=== PATIENT | female | born 1965 | race Caucasian/White ===

== ENCOUNTER 2018-03-08 07:10 | Day surgery (SDC) | payer OTHER ==
[~2018-03-08] VITALS: Ht 162.6 cm; Wt 67.1 kg
--- NOTE | 2018-03-08 06:41 | Anethesia Preoperative Eval ---
Anesthesia Pre-op PMH/ROS General Date of Evaluation: Mar 08, 2018 Time of Evaluation: 06:40 Anesthesiologist: liam ASA Score: ASA 2 Mallampati Score Class I : Soft palate, uvula, fauces, pillars visible Class II: Soft palate, uvula, fauces visible Class III: Soft palate, base of uvula visible Class IV: Only hard plate visible Mallampati Classification: Class II Surgeon: seble Diagnosis: gerd Surgical Procedure: egd Anesthesia History: none Social History: smoking - nonsmoker Family History: no anesthesia problems Allergies: Coded Allergies: No Known Allergies (Unverified , 06/21/15) Medications: see eMAR Patient NPO?: Yes Past Medical History Gastrointestinal/Genitourinary: Reports: other - fibroids Neurologic/Psychiatric: Reports: other - panic disorder HEENT: Reports: other - decreased visual acuity PSxH Narrative: cholecystectomy, abdominal hysterectomy Anesthesia Pre-op Phys. Exam Physician Exam Constitutional: NAD Neurologic: CN 2-12 intact Cardiovascular: RRR Respiratory: CTA Airway Exam Mallampati Score: Class II MO: full Neck: flexible TMD: 2fb ROM: full Anesthesia Pre-op A/P Risk Assessment & Plan Assessment: asa2 Plan: mac Status Change Before Surgery: No Pre-Antibiotics Drug: Francy May MD Mar 08, 2018 06:41
[~2018-03-08 07:10] MED LIST: Atropine Inj 1mg/10ml Syr IV PRN; DiphenhydrAMINE 50mg/ml Inj IVP PRN; LR 1000ml 1,000 ML IVLG SCH; Midazolam 2mg/2ml Inj IVP PRN; PROTONIX40 MG ORAL; fentaNYL 100 mcg/2 mL IV PRN
--- NOTE | 2018-03-08 07:33 | Pre-Procedure Note/Attestation ---
Pre-Procedure Note/Attestation Complete Prior to Procedure Planned Procedure: left Procedure Narrative: Examination of the upper GI tract via endoscopy Indications for Procedure Pre-Operative Diagnosis: R/O Gastritis/Peptic Ulcer Attestation I attest that I discussed the nature of the procedure; its benefits; risks and complications; and alternatives (and the risks and benefits of such alternatives ), prior to the procedure, with the patient (or the patient's legal registered representative). I attest that, if there was a reasonable possibility of needing a blood transfusion, the patient (or the patient's legal registered representative) was given the [facility] standardized written summary, pursuant to the [place] Blood Safety Act ([place] Health and Safety Code # 1645, as amended). I attest that I re-evaluated the patient just prior to the surgery and that there has been no change in the patient's H&P, except as documented below: Magali Everett MD Mar 08, 2018 07:33
--- NOTE | 2018-03-08 07:33 | Short Stay Surgery H&P ---
History of Present Illness History of Present Illness Chief Complaint Abdominal pains/GERDs HPI Zoila Armando is a 52 year old female who was admitted on for GERD/abdominal pain Patient History Allergies: Coded Allergies: No Known Allergies (Unverified , 06/21/15) Past Surgeries: (1) H/O abdominal hysterectomy (2) History of cholecystectomy Medication History Scheduled Pantoprazole* (Protonix*), 40 MG ORAL DAILY, (Reported) Review of Systems Cardiovascular: Reports: no symptoms Respiratory: Reports: no symptoms Skeletal: Reports: no symptoms Gastrointestinal: Reports: gastro esophageal reflux disease Genitourinary: Reports: no symptoms Neurologic: Reports: no symptoms Endocrine: Reports: no symptoms Hematologic: Reports: no symptoms Physical Exam Skin: normal HENT: normal Heart: normal Lungs: normal Abdomen: normal Extremities: normal Genitourinary: normal Plan Plan of Care Upper GI endoscopy and biopsy Preop Interventions None. Summary of Findings See the reports Attestation Are the patient's medical conditions optimized for surgery? Attestation Response: yes Magali Everett MD Mar 08, 2018 07:33
[2018-03-08 07:39] VITALS: BP 118/72
[2018-03-08] MEDS ORDERED: Propofol 200mg/20ml IV ONE (08:00)
[2018-03-08] MEDS ORDERED: LR 1000ml ONE (08:00)
[2018-03-08] MEDS ORDERED: Lidocaine 1% MPF 10mg/ml 5ml ONE (08:00)
--- NOTE | 2018-03-08 08:15 | Endoscopy Procedure Note ---
Endoscopy Procedure Note General Indication for Procedure: Abdominal pain/GERD Procedures Performed: EGD - Completely normal Upper GI endoscopy. Biopsy obtained per random from gastric body. Specimen: yes Pt Tolerated Procedure Well: Yes Estimated Blood Loss: none Anesthesia Anesthesiologist: Dr. Lentz Anesthesia: moderate sedation Medications Medication Given: see anesthesia record Inserted Devices Implant(s) used?: No Quality Quality of Bowel Preparation: Excellent Was there any complications?: No GI Core Measures 50 yrs or older w/o bx or poly: Not Applicable 10yrs. F/U not recommended: Not Applicable If not recommended, why?: Med reason:<3 yrs.: System Reason:<3 yrs.: Magali Everett MD Mar 08, 2018 08:15
--- NOTE | 2018-03-08 08:16 | Discharge Instructions ---
Discharge Instructions Discharge Instructions Follow up with: Visit the doctor after 2 weeks in office For Congestive Heart Failure Reminder Report to your physician any weight gain of 5 pounds or more in one week. Magali Everett MD Mar 08, 2018 08:16
[2018-03-08 08:24] VITALS: BP 98/54
[2018-03-08 08:29] VITALS: BP 102/46
[2018-03-08 08:34] VITALS: BP 92/62
[2018-03-08 09:10] VITALS: BP 110/59
--- NOTE | 2018-03-08 09:35 | Immediate Post-Op Evaluation ---
Immediate Post-Op Evalulation Immediate Post-Op Evalulation Procedure: egd w/bx Date of Evaluation: Mar 08, 2018 Time of Evaluation: 08:36 IV Fluids: 200ml lr Blood Products: none Estimated Blood Loss: negligible Blood Pressure Systolic: 98 Blood Pressure Diastolic: 54 Pulse Rate: 75 Respiratory Rate: 18 O2 Sat by Pulse Oximetry: 100 Temperature (Fahrenheit): 97.0 Pain Score (1-10): 0 Nausea: No Vomiting: No Complications none Patient Status: awake, reacts, patent Hydration Status: adequate Drug: Francy May MD Mar 08, 2018 09:35
--- NOTE | 2018-03-08 09:36 | 48 Hour Post Anesthesia Eval ---
Post Anesthesia Evaluation Procedure: egd w/bx Date of Evaluation: Mar 08, 2018 Time of Evaluation: 08:38 Blood Pressure Systolic: 92 0: 62 Pulse Rate: 62 Respiratory Rate: 18 Temperature (Fahrenheit): 97.0 O2 Sat by Pulse Oximetry: 100 Airway: patent Nausea: No Vomiting: No Pain Intensity: 0 Hydration Status: adequate Cardiopulmonary Status: stable Mental Status/LOC: patient returned to baseline Post-Anesthesia Complications: none Follow-up care needed: N/A Francy Stiles MD Mar 08, 2018 09:36
[2018-03-08 09:40] VITALS: BP 112/68
--- NOTE | 2018-03-08 10:00 | Operative Note - Dictated ---
DATE OF OPERATION: 03/08/2018 SURGEON: Magali Everett M.D. PROCEDURE: Esophagogastroduodenoscopy with biopsy. PREOPERATIVE DIAGNOSIS: Abdominal pain, history of gastroesophageal reflux. POSTOPERATIVE DIAGNOSIS: Completely normal upper GI endoscopy. Biopsy was obtained from gastric body per random. MEDICATION USED: Per Dr. Lentz, anesthesiologist. INSTRUMENT: GIF Olympus upper GI video endoscope. DESCRIPTION OF PROCEDURE: The patient after arriving an endoscopy unit, was told about risks and benefits of the procedure that she accepted and signed informed consent. At this time, she was put in the left lateral decubitus position. After adequate IV sedation, the scope was gently passed through the cricopharyngeal area, was lodged into the upper esophagus, and was gradually advanced towards gastroesophageal junction. The entire length of the esophagus looked normal. No evidence of inflammatory process, ulceration, stricture, varices, etc., was noted. GE junction was also likewise normal without hiatal hernia or Noe's. At this time, the scope was advanced into the stomach, gastric cavity was distended and gradually the areas of the fundus and the body and the antrum were examined with the findings of normal gastric mucosa. No evidence of any ulcerations, tumors, polyps, etc. A retroflexion maneuver was also applied and the area of the gastroesophageal junction was examined in a closer fashion, which revealed to be completely normal. At this time, one random biopsy from gastric body over the greater curvature midbody of the stomach was obtained and subsequently, the scope was passed through the pylorus where first and second portion of duodenum were found to be completely normal. At this time, the scope was pulled out and the procedure was terminated. The patient tolerated the procedure well and left the endoscopy room in a good condition. Magali Everett M.D. DR: GUY JOB#: [id number] CC:
== END 2018-03-08 10:15 | disposition home or self-care (01) ==
LOC: SDS 07:10
DX: K29.50 Unspecified chronic gastritis without bleeding (principal); B96.81 Helicobacter pylori [H. pylori] as the cause of diseases classified elsewhere; F41.0 Panic disorder [episodic paroxysmal anxiety]; Z90.710 Acquired absence of both cervix and uterus; Z90.49 Acquired absence of other specified parts of digestive tract
CPT/HCPCS: 43239; J2704; 94003; 94150